=== PATIENT | female | born 1960 | race Caucasian/White ===

== ENCOUNTER 2018-02-22 09:33 | Emergency (ER) | payer OTHER, SELFPAY ==
[2018-02-22 09:35] VITALS: BP 123/80; PULSE 80; RESP 20; TEMP 36.9; O2SAT 100; BMI 26.1
--- NOTE | 2018-02-22 09:35 | NURSING ---
NO OLD EKGS
--- NOTE | 2018-02-22 09:39 | RAD_ITS ---
STUDY: X-RAY CHEST REASON FOR EXAM: Female, 57 years old. Chest pain. TECHNIQUE: Single AP portable view of the chest. COMPARISON: Prior comparison studies are not available for review at this time. FINDINGS: Cardiac monitoring leads are present. The lungs are hyperexpanded. There appears to be groundglass attenuation in the right infrahilar region that could represent early airspace disease. There is no demonstrated pleural abnormality. There is borderline cardiomegaly. Normal mediastinum and chani. There is prominence of the pulmonary hilar arteries without peripheral pulmonary vascular congestion. There is atherosclerotic tortuosity of the aortic arch and descending thoracic aorta. There is demineralization of the osseous structures. Patient may have had partial resection of the distal right clavicle. There is no demonstrated abnormality of the visualized soft tissue structures of the upper abdomen. RAD/Chest 1 View (Portable) IMPRESSION: 1. Borderline cardiomegaly. 2. Right-sided infrahilar airspace disease possibly representing pneumonia. Electronically Signed: Jemma Ibarra MD at 10:21 EDT , Service support ,
--- NOTE | 2018-02-22 09:39 | EKG12_ITS ---
Test Reason : CHEST PAIN Blood Pressure : / mmHG Vent. Rate : 075 BPM Atrial Rate : 075 BPM P-R Int : 136 ms QRS Dur : 084 ms QT Int : 362 ms P-R-T Axes : 066 040 039 degrees QTc Int : 404 ms Normal sinus rhythm Normal ECG Confirmed by SHONNA MADRID MD ([id number]), assistant editor FRAN TRUONG ([id number] on 02/25/2018 1:05:47 PM Referred By: Confirmed By:SHONNA MADRID MD
[2018-02-22 09:43] VITALS: O2SAT 100
[2018-02-22] MEDS: Aspirin 81 MG TAB.CHEW 324 MG PO (09:48)
[2018-02-22] MEDS: morphine 8 MG/ML Syringe IV (09:49)
[2018-02-22] MEDS: Ondansetron 4 MG/2 ML Vial IV (09:49)
--- NOTE | 2018-02-22 09:55 | ED.VISSUMM ---
- ER Visit Summary Date of Service: 02/22/18 Chief Complaint: [] Left-sided chest pain into the back last night History of Present Illness: The patient is a 57 F [] she has had chest pain on and off for a year or more she had a cardiac stress test about a year ago that was negative she indicates she has chest pain unspecified causes every month she reports last night she having pain to her left chest with her back because to be slightly short of breath. She has no history of VT PE or DVT no risk factors no cough abdominal pain no vomiting or diarrhea but she does report a week or 2 ago she recovered from the flu but although symptoms are resolved Physical Examination: [] Vital signs are within normal range she is in no distress she points to the left sternal border mid level this area is minimally tender to palpation to fingertip pain only there is no crepitance or subcu air or signs of trauma, but the focus of her pain her lungs are clear the heart tones are normal abdomen soft nontender the backs unremarkable pulses symmetric bilaterally her upper lower extremities unremarkable no cyanosis clubbing or edema neurologically is awake moving all 4 Test Results: [] Emergency Department Course and Treatment: [] Patient with long history of chest pain chest pain now is into her back she has no history of VT PE or DVT she has really no risk factors to the prior negative cardiac workup this chest pain she insists is not different and that it never really goes to her back the differential would certainly include PE or dissection as well as angina etc. The patient studies are all unremarkable CBC chemistry EKG see those reports, she has been having pain since yesterday, however her CTA of the chest shows no PE or dissection what appears to be a fracture of the mid sternum which is close to where she is having pain. On reevaluation again she has fingertip pain to the left lateral sternal margin is very mild she declines and denies any type of direct trauma to any part of her body. I explained all the above to her I explained that we could arrange for admission to the hospital was outpatient management she does not wish to be admitted she wants to go home at this time she will be given Naprosyn [place] [facility] interested follow-up with her physician and return for change in symptoms Treatment Plan: [] Disposition: [] Home stable declined admission Impression: [] Chest pain, fracture lower sternum etiology unclear patient denies trauma This note was generated with Dragon dictation software. It may contain incorrect words, spelling, and punctuation that were not noted in review of the chart prior to signing ED Disposition - Plan for ED Patient: Chief Complaint: Chest Pain Referrals: Thien Frazier, DOPER OPERATOR-C [Primary Care Provider] -
[2018-02-22 09:57] LABS: Absolute Lymphocyte Count 1.74 X10^3/ul (0.83-4.51); Absolute Neutrophil Count 1.8 X10^3/uL (2.0-7.7); Basophil# 0.03 X10^3/uL; Basophil% 0.7 % (0-1); Eosinophils% 4.9 % (0-5); Hematocrit 38.6 % (37-47); Hemoglobin 12.7 g/dl (12.0-15.0); Lymphocyte # 1.74 X10^3/ul (4.0); Lymphocyte % 42.9 % (19-41); Mean Corp Hgb Conc 32.9 g/gl (32-36); Mean Corpuscular Hgb 28.5 pg (27.0-32.0); Mean Corpuscular Volume 86.7 fL (81-99); Mean Platelet Vol. 9.1 fl (6.2-12.0); Monocyte# 0.28 X10^3/uL; Monocyte% 6.9 % (0-10); Neutrophil # 1.81 X10^3/uL (2.7-7.7); Neutrophil % 44.6 % (47-70); POSITIVE COUNT NO; POSITIVE DIFFERENTIAL NO; POSITIVE MORPHOLOGY NO; Platelet Count 299 K/mm3 (150-450); RBC Distribution Width CV 12.5 % (11.6-14.6); RBC Distribution Width SD 40.2 fl (35.1-43.9); Red Blood Count 4.45 M/mm3 (4.2-5.4); White Blood Count 4.1 K/mm3 (4.4-11.0)
--- NOTE | 2018-02-22 09:57 | CT_ITS ---
STUDY: CTA CHEST REASON FOR EXAM: Female, 57 years old. Chest pain and shortness of breath. RADIATION DOSAGE (If Supplied By Facility): CTDIvol = ( 8.95 ) mGy, DLP = ( 279.20 ) mGycm TECHNIQUE: The examination was performed with the intravenous administration of 75 ml of Isovue 370 contrast material. Post-processing of the angiographic images was performed, with multiplanar reformation and 3D reconstruction. Individualized dose optimization techniques were used for this CT. COMPARISON: None. FINDINGS: Cardiac monitoring leads are present. Normal enhancement of the main pulmonary artery and right and left pulmonary arteries. Normal enhancement of the bilateral peripheral pulmonary arteries. There is no demonstrated pulmonary embolism. There is atherosclerotic tortuosity of the aortic arch and descending thoracic aorta. Maximum transverse dimension of ascending thoracic aorta measures approximately 3.1 cm. There is no demonstrated aortic dissection. Normal heart and pericardium. There is a large prevascular lymph node measuring approximately 1.5 cm in greatest dimension. Normal hilar regions. Normal visualized trachea and bronchi. The lungs are well expanded. Normal pulmonary parenchyma. Normal pleura. Normal chest wall structures. There is increased thoracic kyphosis. The visualized vertebral bodies have normal height and alignment. There appears to be a fracture of the mid sternum. This is presumably acute. Normal visualized upper abdomen. CT/CTA Chest W/WO Contrast IMPRESSION: 1. No CTA demonstrated pulmonary embolism or arterial dissection. 2. Acute minimally displaced fracture of the mid sternum. 3. Nonspecific mediastinal lymphadenopathy. Electronically Signed: Jemma Ibarra MD at 11:07 EDT , Service support ,
[2018-02-22 10:16] LABS: Anion Gap 7 (5-15); BUN 7 mg/dL (7-18); BUN/Creat Ratio 8.2 RATIO (10-20); Calcium,Total 9.5 mg/dL (8.5-10.1); Chloride 106 mmol/L (98-107); Creatinine, Serum 0.86 mg/dL (0.55-1.02); EST Glomerular Filtration Rate 73 mL/min (>60); Est Glom Filt Rate - Afr Amer 88 mL/min (>60); Estimated Creatinine Clearance 55.77 ml/min; Glucose 79 mg/dL (74-106); Potassium 4.3 mmol/L (3.5-5.1); Sodium Level 143 mmol/L (136-145)
[2018-02-22 10:22] LABS: BNP,B-Type NATRIURETIC PEPTIDE 11.9 pg/mL (0-100)
[2018-02-22 10:58] VITALS: BP 107/87; PULSE 73; RESP 18
--- NOTE | 2018-02-22 11:49 | ED.DEP ---
ED Disposition - Plan for ED Patient: Chief Complaint: Chest Pain Instructions: ED Chest Pain Atypical Unkn Cause Prescriptions: Hydrocodone/Acetaminophen [[place] 5-325 Tablet] 1 - 2 ea PO 4X/DAY PRN PRN 3 Days #12 tab PRN Reason: Pain Naproxen [Naprosyn] 500 mg PO BID PRN #20 tab Referrals: Thien Frazier, [employer] DEVELOPER-C [Primary Care Provider] - Additional Instructions: You have a sternal fracture do not lift anything heavy ice to the area return for chest pain shortness of breath you must follow-up with your doctor the next few days
--- NOTE | 2018-02-22 11:52 | ED.DEP ---
ED Disposition - Plan for ED Patient: Chief Complaint: Chest Pain Instructions: ED Chest Pain Atypical Unkn Cause Prescriptions: Hydrocodone/Acetaminophen [[place] 5-325 Tablet] 1 - 2 ea PO 4X/DAY PRN PRN 3 Days #12 tab PRN Reason: Pain Naproxen [Naprosyn] 500 mg PO BID PRN #20 tab Referrals: Thien Frazier, CUTTER OPERATOR [employer] SHINGLE-C [Primary Care Provider] - Additional Instructions: You have a sternal fracture do not lift anything heavy ice to the area return for chest pain shortness of breath you must follow-up with your doctor the next few days
[2018-02-22 12:14] VITALS: BP 92/51; PULSE 84; RESP 18
== END 2018-02-22 12:10 | disposition home or self-care (01) ==
PROVIDERS: Emergency Provider Emergency Medicine; Family Provider Nurse Practitioner Family; PCP Nurse Practitioner Family
DX: S22.22XA Fracture of body of sternum, initial encounter for closed fracture (principal); R07.9 Chest pain, unspecified; Z79.899 Other long term (current) drug therapy; X58.XXXA Exposure to other specified factors, initial encounter; Y93.9 Activity, unspecified; Y92.9 Unspecified place or not applicable; Y99.9 Unspecified external cause status
CPT/HCPCS: 71045; 71275; 80048; 83880; 84484; 85025; 93005; 96374; 96375; 99285; J7030; J7040; Q9967; A4216; J2405

== ENCOUNTER 2021-05-11 12:53 | Emergency (ER) | payer OTHER, SELFPAY ==
[2021-05-11 12:56] VITALS: BP 105/77; PULSE 95; RESP 23; TEMP 36.1; O2SAT 96; BMI 23.9
--- NOTE | 2021-05-11 13:46 | EKG12_ITS ---
Test Reason : CHEST PAIN Blood Pressure : / mmHG Vent. Rate : 097 BPM Atrial Rate : 097 BPM P-R Int : 132 ms QRS Dur : 074 ms QT Int : 328 ms P-R-T Axes : 052 071 055 degrees QTc Int : 416 ms Normal sinus rhythm Possible Left atrial enlargement Borderline ECG Confirmed by EMANUEL KRAUSE, [place] ([id number]), metropolitan editor VIDAL DAMIAN ([id number]) on 05/15/2021 9:18:01 AM Referred By: LOW Confirmed By:TIMMY CASTELLANOS MD
--- NOTE | 2021-05-11 13:46 | RAD_ITS ---
STUDY: X-RAY CHEST REASON FOR EXAM: Female, 60 years old. Mid sternal chest pain. Shortness of breath. TECHNIQUE: Single AP portable view of the chest. COMPARISON: Comparison is made with prior study dated 02/22/2018. FINDINGS: EKG electrodes are seen. Findings suggestive of early infiltrate in the right infrahilar region. There is no demonstrated pleural abnormality. Normal size heart. Normal mediastinum and chani. Normal visualized pulmonary arteries. Normal visualized aortic arch and descending thoracic aorta. Normal visualized thoracic spine. Normal visualized ribs, clavicles, and shoulders. There is no demonstrated abnormality of the visualized soft tissue structures of the upper abdomen. RAD/Chest 1 View (Portable) IMPRESSION: Right infrahilar infiltrate. Electronically Signed: Enrique Wills MD at 14:18 EDT , Service support ,
--- NOTE | 2021-05-11 13:51 | EDS_ITS ---
HPI History of Present Illness Chief Complaint: Chest Pain Informant: patient Onset/Context/Timing Onset: Weeks (1 week) Timing: Waxes and wanes Quality: Positive for Sharp Location: Substernal Current Severity: Mild Maximum Severity: Moderate Narrative Narrative: Patient present secondary to chest pain and shortness of breath. Patient states she is been having sharp chest pain to the left lower parasternal region. She was seen by her PCPs office last week. They felt she may have a muscle strain and gave her patient states pain is continued and this morning she had an episode of significant shortness of breath where she could not get enough air in. She states at that time her heart rate was ranging between 110 and 125. [facility] Medical History Anxiety and depression GERD (gastroesophageal reflux disease) Hypothyroid Home Medications levothyroxine 50 mcg PO DAILY 02/22/18 [History Last Taken 02/21/18] naproxen 500 mg PO BID PRN #20 tab 02/22/18 [Rx Last Taken Unknown] bupropion HCl 300 mg PO QHS 05/11/21 [History Last Taken Unknown] pantoprazole 40 mg PO DAILY 05/11/21 [History Last Taken Unknown] sertraline 50 mg PO DAILY 05/11/21 [History Last Taken Unknown] Allergy/AdvReac Type Severity Reaction Status Date / Time No Known Allergies Allergy Verified 05/11/21 12:53 Surgical History H/O: hysterectomy Hx of tonsillectomy Social History Smoking Status: Never smoker ROS ROS ED Constitutional Constitutional ED: Denies chills or fever(s) Eyes Eyes: Denies change in vision ENT ENT ED: Denies sore throat Cardiovascular Cardiovascular: Reports chest pain Respiratory/Chest Respiratory/Chest: Reports dyspnea; Denies cough Gastrointestinal Gastrointestinal: Denies abdominal pain, diarrhea, nausea or vomiting Genitourinary Genitourinary ED: Denies dysuria Musculoskeletal Musculoskeletal: Denies back pain Integumentary Denies rash Neurologic Neurologic: Denies headache(s) or weakness Psychiatric Psychiatric: Denies anxiety or depression Endocrine Endocrinology: Denies polydipsia or polyuria Allergic/Immunologic Allergic/Immunologic ED: Denies urticaria EXAM Physical Exam Const Vital Signs: 05/11/21 12:56 05/11/21 12:58 05/11/21 13:53 Temperature 96.9 F L Temperature Source Temporal Pulse Rate 95 85 Respiratory Rate 23 H 20 H Respiratory Effort Normal Non-Labored Blood Pressure 105/77 119/78 Blood Pressure Mean 86 91 Pulse Ox 96 98 Oxygen Delivery Method Room Air Nasal Cannula Oxygen Flow Rate (L/min) 2 05/11/21 14:23 Temperature Temperature Source Pulse Rate 81 Respiratory Rate 18 Respiratory Effort Blood Pressure 116/81 H Blood Pressure Mean 92 Pulse Ox 100 Oxygen Delivery Method Room Air Oxygen Flow Rate (L/min) Positive well nourished and well developed General Appearance ED: well developed HEENT Reports normocephalic and head/scalp atraumatic Eyes PERRL and EOMs intact bilaterally Neck supple Chest Wall inspection of chest normal and palpation of chest normal Resp normal respiratory effort and clear to auscultation bilaterally Cardio regular rate and regular rhythm GI normal to inspection, nondistended, normoactive bowel sounds Palpation: soft Extremity normal to inspection Neuro oriented x3 and no sensory deficits noted Sensorium / Orientation: alert Motor Exam: strength 5/5 throughout Psych mental status grossly normal Skin no rashes or lesions noted Heart Score History: Slightly/Non-Suspicious ECG: Normal Age: >45 - <65 years Risk Factors: No Risk Factors Troponin: </= Normal Limit Score: 1 MDM MDM MDM Narrative Medical decision making narrative: Patient was given aspirin on arrival. compliance monitor, labs, EKG, chest x-ray obtained. Lab Data Attestation: I reviewed the patient's lab results. Labs: Laboratory Results - last 24 hr 05/11/21 05/11/21 05/11/21 12:07 12:07 13:46 WBC 5.6 RBC 4.40 Hgb 12.3 Hct 38.3 MCV 87.0 MCH 28.0 MCHC 32.1 RDW Std Deviation 39.1 RDW Coeff of Issa 12.1 Plt Count 363 MPV 9.3 Immature Gran % (Auto) 0.400 Neut % (Auto) 58.6 Lymph % (Auto) 29.3 [place] % (Auto) 9.0 Eos % (Auto) 2.0 Baso % (Auto) 0.7 Absolute Neuts (auto) 3.3 Absolute Lymphs (auto) 1.65 Nucleated RBC % 0 D-Dimer Quant (PE/DVT) <= 0.27 Sodium 138 Potassium 3.2 L Chloride 104 Carbon Dioxide 27.0 Anion Gap 7 BUN 11 Creatinine 0.79 Estim Creat Clear Calc 58.57 Est GFR (MDRD) Af Amer 95 Est GFR (MDRD) Non-Af 79 BUN/Creatinine Ratio 13.9 Glucose 101 Calcium 9.1 Troponin I High Sens 3.3 Radiography Chest X-Ray - ED: 1 View, Read by ED Physician and Chronic Changes Diagnostic Testing: Radiology Impression Chest X-Ray 05/11/21 13:46 IMPRESSION: Right infrahilar infiltrate. Electronically Signed: Enrique Wills MD at 14:18 EDT , Service support , EKG Initial EKG: Attestation: I personally reviewed and interpreted this EKG as follows: Interpretation: Sinus Rhythm (Sinus at 97 with no acute ischemia.) Treatment and Re-Evaluation Comments:: On repeat evaluation patient resting comfortably. She states she feels much improved. Potassium was noted be slightly low and this was replaced orally here in the emergency room. EKG is unremarkable. Chest x-ray per my interpretation reveals no acute findings. Radiologist interpretation is reviewed is a right infrahilar infiltrate. I did review prior chest x-ray and CTA from 2018. At that time chest x-ray looked the same and was read as a infrahilar infiltrate. CTA done at that time confirmed mediastinal lymphadenopathy but no evidence of infiltrate. At this time patient has no fever, cough, general malaise. I do not feel this represents an acute infiltrate. This was discussed with the patient and if she starts to feel as if she is ill she will be followed up closely. Patient is given return instructions. Discharge Plan Triage Chief Complaint: Chest Pain ED Provider: Fatoumata Buenrostro Dx/Rx/DC Orders Clinical Impression: Chest pain Instructions: ED Chest Pain, Noncardiac Prescriptions: No Action levothyroxine 50 MCG tablet 50 mcg PO DAILY RF: 0 naproxen 500 MG tablet 500 mg PO BID PRN Qty: 20 RF: 0 pantoprazole 40 mg tablet,delayed release (DR/EC) 40 mg PO DAILY RF: 0 sertraline 50 mg tablet 50 mg PO DAILY RF: 0 bupropion HCl 300 mg tablet extended release 24 hr 300 mg PO QHS RF: 0 Primary Care Provider: Thien Frazier NP Referrals: Thien Frazier NP, THERAPEUTIC PROGRAM WORKER-C [Primary Care Provider] - 1 Week Disposition Disposition: Home, Self Care
[2021-05-11 13:53] VITALS: BP 119/78; PULSE 85; RESP 20; O2SAT 98
[2021-05-11] MEDS: Aspirin 81 MG TAB.CHEW 324 MG PO (13:54)
[2021-05-11 13:57] LABS: Absolute Lymphocyte Count 1.65 X10^3/uL (0.83-4.51); Absolute Neutrophil Count 3.3 X10^3/uL (2.0-7.7); Basophil# 0.04 X10^3/uL; Basophil% 0.7 % (0-1); Eosinophil# 0.11 X10^3/uL; Hematocrit 38.3 % (37-47); Hemoglobin 12.3 g/dL (12.0-15.0); Lymphocyte # 1.65 X10^3/ul (0.83-4.51); Lymphocyte % 29.3 % (19-41); Mean Corp Hgb Conc 32.1 g/dL (32-36); Mean Platelet Vol. 9.3 fl (6.2-12.0); Monocyte# 0.51 X10^3/uL; NRBC Flagged by Analyzer 0 % (0-5); Neutrophil # 3.31 X10^3/uL (2.7-7.7); Neutrophil % 58.6 % (47-70); Platelet Count 363 K/mm3 (150-450); RBC Distribution Width CV 12.1 % (11.6-14.6); RBC Distribution Width SD 39.1 fl (35.1-43.9); White Blood Count 5.6 K/mm3 (4.4-11.0)
[2021-05-11 14:11] LABS: Anion Gap 7 (5-15); BUN 11 mg/dL (7-18); BUN/Creat Ratio 13.9 RATIO (10-20); Calcium,Total 9.1 mg/dL (8.5-10.1); Chloride 104 mmol/L (98-107); Creatinine, Serum 0.79 mg/dL (0.55-1.02); EST Glomerular Filtration Rate 79 mL/min (>60); Est Glom Filt Rate - Afr Amer 95 mL/min (>60); Estimated Creatinine Clearance 58.57 ml/min; Glucose 101 mg/dL (74-106); Potassium 3.2 mmol/L (3.5-5.1); Sodium Level 138 mmol/L (136-145); Troponin-I HS 3.3 pg/mL (3.0-53.7)
[2021-05-11 14:23] VITALS: BP 116/81; PULSE 81; RESP 18; O2SAT 100
[2021-05-11 14:47] LABS: D-Dimer Quantitative (DVT/PE) <= 0.27 FEU/ug/m (0.27-0.49)
[2021-05-11 16:04] VITALS: BP 116/80; BP 116/81; PULSE 77; PULSE 78; RESP 16; RESP 18; O2SAT 99
[2021-05-11] MEDS: Potassium Chloride Oral Tablet 20 MEQ 40 MEQ PO (16:05)
== END 2021-05-11 16:12 | disposition home or self-care (01) ==
PROVIDERS: Emergency Provider Emergency Medicine; PCP Nurse Practitioner Family
DX: R07.9 Chest pain, unspecified (principal); E03.9 Hypothyroidism, unspecified; K21.9 Gastro-esophageal reflux disease without esophagitis; F32.9 Major depressive disorder, single episode, unspecified; Z79.899 Other long term (current) drug therapy
CPT/HCPCS: 71045; 80048; 84484; 85025; 85379; 93005; 99285; A4216

== ENCOUNTER 2021-05-18 19:45 | Emergency (ER) | payer OTHER, SELFPAY ==
[2021-05-18 19:46] VITALS: BP 100/53; PULSE 97; RESP 16; TEMP 36.2; O2SAT 99; BMI 23.8
[2021-05-18 19:52] VITALS: O2SAT 98
[2021-05-18 19:56] VITALS: BP 94/68; PULSE 91; RESP 30; O2SAT 98
--- NOTE | 2021-05-18 20:13 | EKG12_ITS ---
Test Reason : DYSRHYTHMIA Blood Pressure : / mmHG Vent. Rate : 095 BPM Atrial Rate : 095 BPM P-R Int : 106 ms QRS Dur : 082 ms QT Int : 344 ms P-R-T Axes : 064 021 048 degrees QTc Int : 432 ms Sinus rhythm with short ID Otherwise normal ECG Confirmed by BIGRIT KRAUSE, USHA ([id number]), slot editor VIDAL DAMIAN ([id number]) on 05/22/2021 9:07:24 AM Referred By: MERY Confirmed By:USHA GENAO MD
--- NOTE | 2021-05-18 20:13 | CT_ITS ---
STUDY: CTA CHEST REASON FOR EXAM: Female, 60 years old. Shortness of breath. Chest pain. RADIATION DOSAGE (If Supplied By Facility): CTDIvol = ( 4.99 ) mGy, DLP = ( 137.11 ) mGycm TECHNIQUE: The examination was performed with the intravenous administration of IV 100mL Isovue-370. Post-processing of the angiographic images was performed, with multiplanar reformation and 3D reconstruction. Individualized dose optimization techniques were used for this CT. COMPARISON: Chest, 05/11/2021. CTA of the chest, 02/22/2018. FINDINGS: Normal enhancement of the main pulmonary artery and right and left pulmonary arteries. Normal enhancement of the bilateral peripheral pulmonary arteries. There is no demonstrated pulmonary embolism. Normal thoracic aorta and visualized great vessels. There is no demonstrated aortic dissection. Normal heart and pericardium. Normal mediastinum. Normal hilar regions. Normal visualized trachea and bronchi. The lungs are well expanded. Normal pulmonary parenchyma. Normal pleura. Normal chest wall structures. Normal osseous structures. Normal visualized upper abdomen. CT/CTA Chest W/WO Contrast IMPRESSION: Normal CTA chest examination, without a demonstrated pulmonary embolism or arterial dissection. Electronically Signed: Johnnie Deleon DO at 20:59 EDT Tel [phone], Service support ,
[2021-05-18 20:36] LABS: Absolute Lymphocyte Count 2.02 X10^3/uL (0.83-4.51); Absolute Neutrophil Count 4.7 X10^3/uL (2.0-7.7); Basophil# 0.03 X10^3/uL; Basophil% 0.4 % (0-1); Eosinophil# 0.09 X10^3/uL; Eosinophils% 1.2 % (0-5); Hematocrit 38.5 % (37-47); Hemoglobin 12.3 g/dL (12.0-15.0); Lymphocyte # 2.02 X10^3/ul (0.83-4.51); Lymphocyte % 26.9 % (19-41); Mean Corp Hgb Conc 31.9 g/dL (32-36); Mean Corpuscular Hgb 27.6 pg (27.0-32.0); Mean Corpuscular Volume 86.5 fL (81-99); Mean Platelet Vol. 9.4 fl (6.2-12.0); Monocyte# 0.64 X10^3/uL; Monocyte% 8.5 % (0-10); NRBC Flagged by Analyzer 0 % (0-5); Neutrophil # 4.71 X10^3/uL (2.7-7.7); Neutrophil % 62.7 % (47-70); Platelet Count 369 K/mm3 (150-450); RBC Distribution Width CV 12.2 % (11.6-14.6); RBC Distribution Width SD 38.9 fl (35.1-43.9); Red Blood Count 4.45 M/mm3 (4.2-5.4); White Blood Count 7.5 K/mm3 (4.4-11.0)
[2021-05-18 20:56] LABS: Anion Gap 11 (5-15); BUN 12 mg/dL (7-18); BUN/Creat Ratio 14.2 RATIO (10-20); Calcium,Total 9.3 mg/dL (8.5-10.1); Chloride 103 mmol/L (98-107); Creatinine, Serum 0.85 mg/dL (0.55-1.02); EST Glomerular Filtration Rate 73 mL/min (>60); Est Glom Filt Rate - Afr Amer 89 mL/min (>60); Estimated Creatinine Clearance 54.44 ml/min; Glucose 114 mg/dL (74-106); Potassium 3.4 mmol/L (3.5-5.1); Sodium Level 138 mmol/L (136-145); Troponin-I HS 3.3 pg/mL (3.0-53.7)
[2021-05-18 21:02] LABS: BNP,B-Type NATRIURETIC PEPTIDE 9.9 pg/mL (0-100)
--- NOTE | 2021-05-18 21:37 | EX.ED.DYSGE1 ---
HPI History of Present Illness Chief Complaint: Shortness of Breath Informant: patient Narrative Narrative: Patient is a 60-year-old female with history of hypothyroid and anxiety presenting with chest pain. Patient states she developed chest pain or shortness of breath about a week and a half ago. She saw her PCP who felt that her pain was likely musculoskeletal. Patient was seen in the ER week ago and had a negative-see troponin as well as is negative D-dimer. Her chest x-ray was pretty unremarkable patient was ultimately discharged home. Today she is developed a cough and is having worsening pain in her sternal area as well as her left anterior chest. She states she feels short of breath and her breath catches. Patient came in and was breathing very quickly but was not hypoxic. She was placed on oxygen for improvement of her symptoms. Patient did recently start taking full dose aspirin daily and is working on scheduling a stress test and echocardiogram with her PCP. Patient denies any history of DVT or PE. She states she is concerned because she had a injury to her legs with a lot of bruising in December of this year and not sure if that could be increased her risk of blood clots. Patient does note at home sometimes her heart rate will jump up into the 130s. [facility] Medical History Anxiety and depression GERD (gastroesophageal reflux disease) Hypothyroid Home Medications levothyroxine 50 mcg PO DAILY 02/22/18 [History Last Taken 02/21/18] naproxen 500 mg PO BID PRN #20 tab 02/22/18 [Rx Last Taken Unknown] bupropion HCl 300 mg PO QHS 05/11/21 [History Last Taken Unknown] pantoprazole 40 mg PO DAILY 05/11/21 [History Last Taken Unknown] sertraline 50 mg PO DAILY 05/11/21 [History Last Taken Unknown] Baby Aspirin 81 mg DAILY 05/18/21 [History Last Taken Unknown] Allergy/AdvReac Type Severity Reaction Status Date / Time No Known Allergies Allergy Verified 05/18/21 19:46 Surgical History H/O: hysterectomy Hx of tonsillectomy Social History Smoking Status: Never smoker ROS ROS ED Constitutional Constitutional ED: Denies chills or fever(s) Eyes Eyes: Denies blurry vision or change in vision ENT ENT ED: Denies ear pain, rhinorrhea or sore throat Cardiovascular Cardiovascular: Reports chest pain; Denies palpitations or racing heartbeat Respiratory/Chest Respiratory/Chest: Reports cough and dyspnea; Denies dyspnea on exertion or sputum Gastrointestinal Gastrointestinal: Denies abdominal pain, nausea or vomiting Genitourinary Genitourinary ED: Denies dysuria or hematuria Musculoskeletal Musculoskeletal: Denies arthralgias or myalgias Integumentary Denies rash Neurologic Neurologic: Denies headache(s) or weakness Psychiatric Psychiatric: Reports anxiety; Denies depression EXAM Physical Exam Const Vital Signs: 05/18/21 19:46 05/18/21 19:52 05/18/21 19:56 Temperature 97.2 F L Temperature Source Temporal Pulse Rate 97 91 Respiratory Rate 16 30 H Respiratory Effort Labored Respiratory Pattern Tachypnea Blood Pressure 100/53 L 94/68 Blood Pressure Mean 68 76 Pulse Ox 99 98 Oxygen Delivery Method Room Air Room Air Nasal Cannula Oxygen Flow Rate (L/min) 2 05/18/21 21:57 Temperature Temperature Source Pulse Rate 75 Respiratory Rate 19 H Respiratory Effort Respiratory Pattern Blood Pressure 117/78 Blood Pressure Mean 91 Pulse Ox 97 Oxygen Delivery Method Room Air Oxygen Flow Rate (L/min) Positive well nourished and well developed General Appearance ED: well developed HEENT Reports moist mucous membranes Negative for tenderness Eyes PERRL and EOMs intact bilaterally Neck no lymphadenopathy and supple Chest Wall inspection of chest normal Chest Narrative: tenderness to palpation over sternum and left anterior chest wall. No crepatus Resp normal respiratory effort and clear to auscultation bilaterally Cardio regular rate, regular rhythm and no murmurs GI normal to inspection, nondistended, normoactive bowel sounds Back/Spine no CVA tenderness Extremity normal to inspection General Extremety ED: Negative for edema or tenderness General Extremity: Negative for edema Neuro oriented x3 and CN's II-XII intact bilaterally Sensorium / Orientation: alert Psych mental status grossly normal Skin no rashes or lesions noted MDM MDM MDM Narrative Medical decision making narrative: Patient evaluated for continued episodes of shortness of breath and chest pain. Chest pain appears to likely be muscle skeletal versus pleuritic. Given that she is having worsening symptom's and is reporting episodes of tachycardia I did obtain a CTA of the chest. This does not show any PE or any other acute cardiopulmonary process. Her she troponin is normal. Her BNP is normal. She does have a mildly elevated TSH but I do not think this explains her symptoms. Patient does not have any significant laboratory values to explain her presentation. She is not have any acute process on imaging. She does not have any acute ischemic changes on her EKG or findings consistent with pericardial effusion or pericarditis. Patient is counseled that she is stable for outpatient follow-up. The exact cause of her pain is not clear but the differential includes arrhythmia, costochondritis, pleurisy, GERD or anxiety. She will follow-up for stress test/echo outpatient and with her PCP. Patient is agreeable with this plan of care. She discharged home in stable condition. Lab Data Attestation: I reviewed the patient's lab results. Labs: Laboratory Results - last 24 hr 05/18/21 05/18/21 05/18/21 19:50 19:50 19:50 WBC 7.5 RBC 4.45 Hgb 12.3 Hct 38.5 MCV 86.5 MCH 27.6 MCHC 31.9 L RDW Std Deviation 38.9 RDW Coeff of Issa 12.2 Plt Count 369 MPV 9.4 Immature Gran % (Auto) 0.300 Neut % (Auto) 62.7 Lymph % (Auto) 26.9 [place] % (Auto) 8.5 Eos % (Auto) 1.2 Baso % (Auto) 0.4 Absolute Neuts (auto) 4.7 Absolute Lymphs (auto) 2.02 Nucleated RBC % 0 Sodium 138 Potassium 3.4 L Chloride 103 Carbon Dioxide 24.0 Anion Gap 11 BUN 12 Creatinine 0.85 Estim Creat Clear Calc 54.44 Est GFR (MDRD) Af Amer 89 Est GFR (MDRD) Non-Af 73 BUN/Creatinine Ratio 14.2 Glucose 114 H Calcium 9.3 Troponin I High Sens 3.3 B-Natriuretic Peptide 9.9 TSH 13.70 H Radiography Diagnostic Testing: Radiology Impression Chest CTA 05/18/21 20:13 IMPRESSION: Normal CTA chest examination, without a demonstrated pulmonary embolism or arterial dissection. Electronically Signed: Johnnie Deleon DO at 20:59 EDT Tel [phone], Service support , Rhythm Strip Rhythm Strip: Sinus Rhythm Rate: 95 Ectopy: None EKG Initial EKG: Attestation: I personally reviewed and interpreted this EKG as follows: Interpretation: Sinus Rhythm Comments: Normal sinus rhythm rate of 95 NC interval 106 Normal axis QRS [address] segments Discharge Plan Triage Chief Complaint: Shortness of Breath ED Provider: Nicolasa Holloway Dx/Rx/DC Orders Clinical Impression: Chest pain Instructions: ED Chest Pain, Uncertain Cause Prescriptions: No Action levothyroxine 50 MCG tablet 50 mcg PO DAILY RF: 0 naproxen 500 MG tablet 500 mg PO BID PRN Qty: 20 RF: 0 pantoprazole 40 mg tablet,delayed release (DR/EC) 40 mg PO DAILY RF: 0 sertraline 50 mg tablet 50 mg PO DAILY RF: 0 bupropion HCl 300 mg tablet extended release 24 hr 300 mg PO QHS RF: 0 Baby Aspirin 81 mg DAILY RF: 0 Primary Care Provider: Thien Frazier NP Referrals: Thien Frazier NP, PAYROLL SERVICES ANALYST-C [Primary Care Provider] - Activity Restrictions/Additional Instructions: Your TSH level was slightly elevated (13.7). Please follow-up with your primary care provider for this. Disposition Disposition: Home, Self Care Discharge Date/Time: 05/18/21 21:58
[2021-05-18 21:57] VITALS: BP 117/78; PULSE 73; PULSE 75; RESP 19; O2SAT 97
== END 2021-05-18 21:58 | disposition home or self-care (01) ==
PROVIDERS: Emergency Provider Emergency Medicine; PCP Nurse Practitioner Family
DX: R07.9 Chest pain, unspecified (principal); R06.02 Shortness of breath; E03.9 Hypothyroidism, unspecified; K21.9 Gastro-esophageal reflux disease without esophagitis; F32.9 Major depressive disorder, single episode, unspecified; Z79.82 Long term (current) use of aspirin; Z79.899 Other long term (current) drug therapy
CPT/HCPCS: 71275; 80048; 83880; 84443; 84484; 85025; 93005; 99285; Q9967; A4216

== ENCOUNTER → 2021-06-01 11:43 | Outpatient (CLI) | payer OTHER, SELFPAY ==
[2021-05-18 19:46] VITALS: BMI 23.8
--- NOTE | 2021-06-01 11:46 | ECHOD_ITS ---
Reason For Study: SOB Procedure This was a 2D Doppler, Color Flow transthoracic echocardiogram. Exam performed in department. Left Ventricle Normal LV size. Left ventricular systolic function is normal. The estimated ejection fraction is 55 %. Stage 1 diastolic dysfunction. No regional wall motion abnormalities noted. Right Ventricle Normal RV size. Normal systolic function. Atria Normal left atrium. Normal right atrium. Mitral Valve Normal mitral valve. Tricuspid Valve Normal tricuspid valve. Aortic Valve Normal aortic valve. Trisinus/trileaflet aortic valve. Pulmonic Valve Normal pulmonic valve. Great Vessels Normal aortic root. The pulmonary artery is normal size. Normal inferior vena cava. Pericardium/Pleural No pericardial effusion. MMode/2D Measurements & Calculations LVIDd: 3.7 cm IVSd: 0.74 cm Ao root diam: 3.3 cm LVIDs: 2.4 cm LVPWd: 0.73 cm RVDd: 3.1 cm FS: 34.4 % LAV(MOD-bp): 35.8 ml LVAd ap4: 24.4 cm2 LVAd ap2: 26.2 cm2 LAV(MOD-bp) Indexed: 23.2 ml/m2 LVLd ap4: 7.5 cm LVLd ap2: 7.6 cm LAV(MOD-sp2): 36.7 ml EDV(MOD-sp4): 65.5 ml EDV(MOD-sp2): 75.1 ml LAV(MOD-sp4): 32.9 ml EDV(sp4-el): 67.0 ml EDV(sp2-el): 77.0 ml LVAs ap4: 15.4 cm2 LVAs ap2: 16.0 cm2 LVLs ap4: 6.8 cm LVLs ap2: 6.6 cm ESV(MOD-sp4): 30.5 ml ESV(MOD-sp2): 32.2 ml ESV(sp4-el): 30.0 ml ESV(sp2-el): 32.9 ml EF(MOD-sp4): 53.4 % EF(MOD-sp2): 57.2 % EF(sp4-el): 55.3 % SV(MOD-sp4): 35.0 ml SV(MOD-sp2): 42.9 ml SV(sp4-el): 37.1 ml LA dimension(2D): 2.8 cm LA A4 area: 14.8 cm2 RA A4 area: 13.5 cm2 Doppler Measurements & Calculations MV E max eddie: 64.1 cm/sec Lat Peak E' Eddie: 13.0 cm/sec Med Peak E' Eddie: 8.5 cm/sec MV A max eddie: 69.0 cm/sec E/E' lat: 4.9 E/E' med: 7.5 MV E/A: 0.93 Ao V2 max: 130.4 cm/sec LV V1 max: 103.0 cm/sec PA V2 max: 103.4 cm/sec Ao max P.8 mmHg LV V1 max P.2 mmHg ECHO/Echo Complete Interpretation Summary Normal LV size. Left ventricular systolic function is normal. The estimated ejection fraction is 55 %. Stage 1 diastolic dysfunction. Structurally normal valves. Ordering Physician: Clement Walls Referring Physician: Clement Walls Performed By: January Porter RDCS
--- NOTE | 2021-06-01 16:16 | STRESSREP ---
Stress Test Report Exercise stress test. 61-year-old lady with a history of shortness of breath. Stress protocol: Rest EKG demonstrates normal sinus rhythm with a rate of 85 bpm normal intervals are noted resting blood pressure is 110/68 mmHg. The patient exercised according to regular Gee protocol for total duration of 9 minutes. Patient completed stage III of the Gee protocol. The maximum heart rate attained was 153 bpm which was 95% of max infected heart rate the maximum workload was 10.1 metabolic equivalents. At rest there were no ST or T wave changes noted suggest ischemia at peak exercise upsloping ST changes were noted with did not meet the criteria for ischemia. No clinical angina was noted and the test was terminated due to dyspnea. The peak blood pressure was 146/58 mmHg. No arrhythmias were noted. Conclusion: Exercise stress test with no EKG criteria for ischemia at a high workload
== END ==
PROVIDERS: PCP Nurse Practitioner Family; Referring Provider Preventive Medicine Occupational Medicine; Visit Provider Preventive Medicine Occupational Medicine
DX: R06.02 Shortness of breath (principal); R06.00 Dyspnea, unspecified
CPT/HCPCS: 93017; 93306

== ENCOUNTER → 2022-05-19 | Outpatient (CLI) | payer BC, SELFPAY ==
[2022-05-19 11:49] LABS: Hematocrit 39.5 % (37-47); Hemoglobin 12.6 g/dL (12.0-15.0); Mean Corp Hgb Conc 31.9 g/dL (32-36); Mean Corpuscular Hgb 28.1 pg (27.0-32.0); Mean Platelet Vol. 9.5 fl (6.2-12.0); Platelet Count 342 K/mm3 (150-450); RBC Distribution Width CV 12.2 % (11.6-14.6); Red Blood Count 4.49 M/mm3 (4.2-5.4); White Blood Count 4.3 K/mm3 (4.4-11.0)
[2022-05-19 12:16] LABS: Anion Gap 5 (5-15); BUN 9 mg/dL (7-18); BUN/Creat Ratio 10.9 RATIO (10-20); Calcium,Total 9.1 mg/dL (8.5-10.1); Chloride 106 mmol/L (98-107); Creatinine, Serum 0.83 mg/dL (0.55-1.02); EST Glomerular Filtration Rate 75 mL/min (>60); Est Glom Filt Rate - Afr Amer 91 mL/min (>60); Glucose 119 mg/dL (74-106); Potassium 3.5 mmol/L (3.5-5.1); Sodium Level 140 mmol/L (136-145)
[2022-05-19 12:27] LABS: Thyroid Stim Hormone (TSH) 1.95 uIU/mL (0.358-3.74)
== END | disposition home or self-care (01) ==
LOC: LAB 10:46
PROVIDERS: Anesthesiology; PCP Nurse Practitioner Family; Visit Provider Surgery
DX: Z01.818 Encounter for other preprocedural examination (principal)
CPT/HCPCS: 36415; 80048; 84443; 85027

== ENCOUNTER 2022-05-21 06:01 | Day surgery (SDC) | payer BC, SELFPAY ==
[2022-05-21] VITALS (9 sets, daily range): BP systolic 107–126; BP diastolic 56–90; PULSE 69–93; RESP 15–16; TEMP 36.6–36.9; O2SAT 95–100; BMI 25.0
[2022-05-21] MEDS: Lactated Ringers 1,000 ML 15 ML IV (06:10)
--- NOTE | 2022-05-21 06:11 | EKG12_ITS ---
Test Reason : PRE-OP Blood Pressure : / mmHG Vent. Rate : 076 BPM Atrial Rate : 076 BPM P-R Int : 146 ms QRS Dur : 080 ms QT Int : 360 ms P-R-T Axes : 054 018 021 degrees QTc Int : 405 ms Normal sinus rhythm Normal ECG When compared with ECG of 18-MAY-2021 19:57, No significant change was found Confirmed by EMANUEL KRAUSE, IWONA ([id number]), brands editor VIDAL DAMIAN ([id number]) on 05/25/2022 2:38:18 PM Referred By: Clement Bond Confirmed By:TIMMY CASTELLANOS MD
--- NOTE | 2022-05-21 07:03 | PCM.HP.BLA ---
History and Physical Date of Admission: 05/21/22 Visit Reasons:?RUQ PAIN Chief Complaint: abn hida Expert Witness Required: No Is patient in pain?: No Allergies No Known Allergies Allergy (Verified 05/14/22 13:37) Medications naproxen 500 mg tablet 500 mg PO BID PRN #20 tabs 02/22/18 [Rx Confirmed 05/14/22] bupropion HCl 300 mg 24 hr tablet, extended release 300 mg PO QHS 05/11/21 [History Confirmed 05/14/22] pantoprazole 40 mg tablet,delayed release 40 mg PO DAILY 05/11/21 [History Confirmed 05/14/22] sertraline 50 mg tablet 50 mg PO DAILY 05/11/21 [History Confirmed 05/14/22] levothyroxine 88 mcg tablet 88 mcg PO DAILY 05/14/22 [History Confirmed 05/14/22] loratadine 10 mg tablet ea PO 05/14/22 [History Confirmed 05/14/22] Is last menstrual period known: No Post menopausal: Yes Patient : No PFSH Medical History?(Updated 05/14/22 @ 13:36 by Lana Gold) Anxiety and depression Aortic valve sclerosis Asthma Biliary dyskinesia Chronic fatigue disorder Depression Fibromyalgia GERD (gastroesophageal reflux disease) Herpes labialis Hypothyroid IBS (irritable bowel syndrome) Mitral valve regurgitation Pulmonary HTN Sciatica Tricuspid valve regurgitation Surgical History?(Updated 05/14/22 @ 13:36 by Lana Gold) H/O: hysterectomy History of arthroscopy History of bursectomy History of dilation and curettage History of tubal ligation Hx of tonsillectomy Family History?(Updated 05/14/22 @ 13:37 by Lana Gold) Mother Breast cancerFather Colon cancer Social History? Smoking Status:? Never smoker HPI HPI HPI: JENNIFER PAUL, is a 61 F who presents to the office today for surgical consultation regarding postprandial abdominal pain bloating and diarrhea.? January 2022 after eating out she had experience of profuse diarrhea followed by bloating epigastric and back pain.? No bright red blood per rectum or melena.? No fever chills or sweats.? She would then have somewhat of an upset abdomen for couple days.? Her only previous surgical procedure on abdomen was tubal ligation.? Since the onset of this she has had 4 or 5 occasions of the same.? This seemingly occurs with eating out.? She does note fatty food intolerance having eaten ribs or sour cream. At [facility] she had a right upper quadrant ultrasound showing no gallstones.? Possibly a 3 mm gallbladder polyp.? No fluid or wall thickening.? That was obtained on April 05, 2022.? Then on April 24 the patient had a hepatobiliary scan.? This suggested an ejection fraction of 25%.? These findings were felt to be consistent with chronic cholecystitis. The patient states that she has had a previous colonoscopy without findings.? She has not had an upper endoscopy. 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 She does have some mitral and tricuspid valve regurgitation however has never been required to see a automotive accessory installer.? She is able to accomplish her tasks of daily living. ROS General General: Yes weight change; No appetite, fatigue, colon cancer, breast cancer or weakness HEENT HEENT: No difficulty swallowing, eye injury, eye surgery, swollen glands or hoarseness Endo Endocrine: No thyroid disease, diabetes mellitus, thyroid cancer, Hair loss, heat intolerance or cold intolerance Breast Breast: No left breast lump, right breast lump, nipple discharge, breast pain, abnormal mammogram, abnormal US or breast enlargement Musc Musculoskeletal: Yes arthritis; No back problems, rheumatoid arthritis, gout or joint pain Cardio Cardiovascular: No murmur, pacemaker, heart disease, atrial fibrillation, high blood pressure, heart attack, heart stent, palpitations, shortness of breat with exertion or chest pain Psych Psychiatric: Yes depression and anxiety; No hearing voices Resp Respiratory: No shortness of breath, No sleep apnea, No cough, No COPD, No asthma, No emphysema and No wheezing Gastro Gastrointestinal: Yes abdominal pain, No nausea or vomiting, Yes diarrhea, No constipation, No blood in stool, Yes acid reflux, No hemorrhoids, No ulcers, Yes gallbladder problem and No black,tarry stools Nestor Hematologic: No blood thinners, No blood disorders, No bleeding, No anemia and No blood clots Neuro Neurologic: No weakness Exam Const General: cooperative, healthy appearing, comfortable and no acute distress [facility] Head: normal to inspection Eyes General: appearance normal, both eyes and all related structures Neck Neck: normal visual inspection Chest Chest palpation & inspection: normal inspection of the chest Resp Effort & Inspection: normal respiratory effort Auscultation: clear to auscultation bilaterally Cardio Rate: regular rate Rhythm: regular rhythm GI Inspection: normal to inspection Palpation: soft and no hepatosplenomegaly Auscultation: normal bowel sounds Musc Cervical Spine: normal cervical lordosis Skin General: no rashes or lesions noted Neuro General: patient alert, patient awake and patient oriented x3 Extrem General: no calf tenderness Psych Appearance: grossly normal Assessment and Plan Assessment and Plan (1) Biliary dyskinesia: ?Status:?Acute ?Plan: Findings seem to be consistent with biliary dyskinesia.? Not clear to me whether this correlates with all of her symptoms.? I have offered her laparoscopic cholecystectomy with selective cholangiograms.? She is aware of the technique, benefit, risk, alternatives.? She has had an opportunity to ask and have questions answered.? We will schedule procedure at her discretion.? She is aware that if her symptoms do not sigrid subsequent to the procedure that we may need to get gastroenterology involved. I very much appreciate the kind opportunity of assisting with the surgical care Copy:Thien Frazier, GLO[employer]PPL[employer] CH[employer] VICE PRESIDENT-C Clement Bond M.D., F.A.C.S I have re-examined the patient. There are no clinical changes since date of exam. Clement Bond M.D., F.A.C.S.
--- NOTE | 2022-05-21 07:21 | DCINST_ITS ---
Discharge Instructions Procedure General Surgery Diet Discharge Diet: Light diet - advance as tolerated (if you have questions about your diet instructions, please talk to you doctor.) Activity Discharge Activity: May Not Drive (for 3-5 days or while taking narcotic pain medicine.) May shower in (days): 1 Lifting Restrictions: 10 pounds Dressing / Incision Call your doctor if your incision/area has: Continuous Slow Oozing, Sudden Increased Bleeding, Increased Pain/ Swelling, Increased Redness and Foul Smelling Discharge Call your doctor if you observe: Fever of 101 or Higher Suture Line Care: Avoid Pulling/Pushing and Avoid Pinching/Bending Additional Dressing/Incision Instructions:: Change or remove dressing in 4 days. Leave steri-strips in place for 1 week. Follow Up Care Please Follow Up With: Clement Bond MD When: Call [phone] to make an appointment to be seen in about 10 days. Test Results: Test results from this visit will be discussed in further detail at your follow- up appointment, if applicable. Discharge Plan Admission Attending Provider: Clement Bond Primary Care Provider: Thien Frazier NP Discharge Orders/Prescriptions Prescriptions: No Action levothyroxine 88 mcg tablet 88 mcg PO DAILY Label Comments: TAKE 1 TABLET BY MOUTH EVERY DAY loratadine [Claritin] 10 mg tablet 1 ea PO DAILY Label Comments: TAKE 1 TABLET BY MOUTH EVERY DAY naproxen 500 MG tablet 500 mg PO BID PRN Qty: 20 0RF pantoprazole 40 mg tablet,delayed release (DR/EC) 40 mg PO DAILY Label Comments: TAKE 1 TABLET BY MOUTH EVERY DAY sertraline [Zoloft] 50 mg tablet 50 mg PO DAILY Label Comments: TAKE 1 TABLET BY MOUTH EVERY DAY bupropion HCl [Wellbutrin XL] 300 mg tablet extended release 24 hr 300 mg PO QHS Label Comments: TAKE 1 TABLET BY MOUTH EVERY DAY Referrals / Follow Up: Thien Frazier NP, DOUGH MIXING MACHINE OPERATOR-C [Primary Care Provider] - Disposition Disposition (needs filled in before D/C Order can be placed): Home, Self Care
[2022-05-21] MEDS: Cefazolin 2 GM in 0.9% Normal Saline 100 ML IV (07:30)
--- NOTE | 2022-05-21 07:30 | GALL_PTH ---
PATIENT: JENNIFER PAUL LOC: [facility] U#:[id number] AGE/SX: 61/F ROOM: RE05/21/[address]: Dr. Clement Bond MD : [id number] BED: DIS: 05/21/2022 SPEC #: [id number] RECD: 05/21/22 10:57 STATUS: YRN MUÑOZ #: [id number] TRICE: 05/21/22 07:[address]: Clement Bond DEPT: SURGICAL PATHOLOGY RECD BY: Lucille Lawrence ENTERED: 05/21/22 13:15 SP TYPE: FRED AKHTAR DR: Thien Frazier, TIP-C Tissues: Gallbladder, NOS Procedures: Surgery Specimen Level III HEADER OPERATION: Laparoscopic cholecystectomy with IOC PRE-OP DIAGNOSIS: Biliary dyskinesia TISSUE SUBMITTED: Gallbladder MICROSCOPIC DIAGNOSIS Gallbladder, cholecystectomy: Consistent with chronic cholecystitis. AM:grace 05/22/2022 MICROSCOPIC DESCRIPTION Slides are reviewed. GROSS DESCRIPTION Received is one container labeled with the patient's name and designated gallbladder. The specimen consists of a gallbladder measuring 9 cm in length and up to 3.5 cm in diameter. The external surface is pink-betancourt, smooth and glistening for the most part. Focally it is granular, hemorrhagic and contains cautery artifact. The gallbladder contains green-yellow mucoid bile. No stones are identified in the container or in the gallbladder. The mucosa is bile-stained and without any mass lesions. The gallbladder wall shows a betancourt-yellow polyp consistent with cholesterolosis measuring 0.3 cm in greatest dimension. The mucosa also shows several yellowish streaks consistent with cholesterolosis. The gallbladder wall measures up to 0.1 cm in thickness. Coal Passer sections from the gallbladder and the cystic duct are submitted in one cassette. / SJ:grace 05/21/2022 TC:3 CPT: 59518
--- NOTE | 2022-05-21 07:45 | RAD_ITS ---
STUDY: INTRAOPERATIVE CHOLANGIOGRAM. REASON FOR EXAM: Female, 61 years old. Laparoscopic cholecystectomy. FLUOROSCOPY TIME (if supplied): ( 11 seconds ) minutes/seconds. A cine loop of 71 images was obtained. TECHNIQUE: An intraoperative cholangiogram was performed by the surgeon. Imaging was submitted. COMPARISON: None. FINDINGS: The visualized intrahepatic biliary ducts are unremarkable. There is opacification of the common bile duct. No intraluminal filling defect is seen. There is free flow of contrast into the duodenum. RAD/Cholangiogram/ O R,Initial IMPRESSION: Unremarkable intraoperative cholangiogram. Electronically Signed: Enrique Wills MD at 12:03 EDT ,
--- NOTE | 2022-05-21 08:22 | OP.PCM_ITS ---
Problems Associated Problem List Diagnoses (1) Biliary dyskinesia: Report of Operation Date of Procedure: 05/21/22 Pre-Operative Diagnosis: Biliary dyskinesia Post-Operative Diagnosis: Same Surgery/Procedure Performed:: Laparoscopic cholecystectomy with cholangiograms Description of Surgical Findings:: Timeout informed consent was obtained. 61-year-old female was taken to the operating placed upon the table underwent general endotracheal intubation esthesia. Ancef 2 g were given intravenously. The abdomen sterilely prepped and draped. 0.25% Marcaine was used as local anesthetic. Throughout the procedure a total of 30 cc was used. Skin sites were pretty anesthetized. A supraumbilical vertical incision was created sharp dissection carried down through subcu tissue holding sutures of 0 Vicryl placed varies needle inserted and saline drop test performed the abdomen was insufflated with CO2 to a pressure of 10 mmHg pressure. 10 mm trocar inserted. 10 mm laparoscope inserte d. No evidence of any trocar injuries. Under direct visualization a 5 mm ports were placed in the epigastric right upper quadrant right lateral upper quadrant area. The gallbladder was distracted. Blunt dissection was instituted at the infundibulum. The visualization today was extraordinarily clear and the common bile duct proper hepatic duct cystic duct and cystic artery were all well visual ized. Critical view was achieved with blunt dissection. Hem-o-nancy clips were placed were needed for hemostasis. Hem-o-nancy clip was placed on the distal aspect of the cystic duct incision made in the cystic duct and 14-gauge Angiocath was inserted to assist with placement of cholangiogram catheter. Fluoroscopically controlled cholangiograms were obtained demonstrating normal ductal anatomy and free flow into the small bowel. Cholangiogram catheter was removed. 2 Hem-o-nancy clips were placed on the cystic duct stump prior to transecting it. The cystic artery was clipped twice proximally and once distally prior to transecting it. An additional Hem-o-nancy clip was placed on the liver bed area. The gallbladder was dissected free from the liver bed using electrocautery. Complete hemostasis was intact. Absolutely minimal blood and no bile spillage. The gallbladder was placed in retrieval bag. The right upper quadrant was inspected was noted to be completely hemostatic. The abdomen was allowed to deflate through an antiviral valve. The gallbladder is exited the umbilicus. The fascia at the umbilicus fragment of the 2-0 Vicryl [id number]-ij-[id number] suture. Skin edges proximal interrupted 4 Monocryl subdermal stitches. Steri-Strips Telfa OpSite dressings applied. Sponge and instrument and needle counts were reported to the surgeon be correct. Specimens gallbladder. Drains none. Blood loss minimal. The patient was taken to the recovery room in satisfactory addition without apparent complication Clement Bond M.D., F.A.C.S. Surgeon: Clement Bond Type of Anesthesia: General
[2022-05-21] MEDS: Bupivacaine 0.25% 30 ML Vial (08:26)
== END 2022-05-21 11:09 | disposition home or self-care (01) ==
LOC: SDC 06:01 → AC 06:02
PROVIDERS: PCP Nurse Practitioner Family; Referring Provider Surgery; Visit Provider Surgery
PROC: (CPT 47610; principal; 2022-05-21 07:10)
DX: K81.1 Chronic cholecystitis (principal); K82.8 Other specified diseases of gallbladder; F41.9 Anxiety disorder, unspecified; F32.A Depression, unspecified; K21.9 Gastro-esophageal reflux disease without esophagitis; E03.9 Hypothyroidism, unspecified; Z79.899 Other long term (current) drug therapy
CPT/HCPCS: 47563; 00790; 74300; 76000; 88304; 93005; J7120; J2405